=== PATIENT | female | born 1965 | race Two or more races ===

== ENCOUNTER → 2024-02-04 22:10 | Emergency (ER) | payer MEDICAID, OTHER ==
[~2024-02-04] VITALS: Ht 162.6 cm; Wt 59.0 kg
[~2024-02-04 22:10] MED LIST: HYDR-4902 PO
[2024-02-05 01:32] VITALS: BP 129/63; PULSE 67; RESP 17; TEMP 98.2; O2SAT 96
[2024-02-05] MEDS: HYDROcodone-ACET 5/325MG TAB PO ONE (02:32)
== END | disposition home or self-care (01) ==
LOC: EDUNIT# 22:00 → EDBD 22:10 → ER 22:10
DX: S42.031A Displaced fracture of lateral end of right clavicle, initial encounter for closed fracture (principal); S43.491A Other sprain of right shoulder joint, initial encounter; Z98.890 Other specified postprocedural states; Y08.89XA Assault by other specified means, initial encounter; Y93.89 Activity, other specified; Y92.89 Other specified places as the place of occurrence of the external cause; Y99.8 Other external cause status
CPT/HCPCS: 73030